=== PATIENT | female | born 1995 | race African-American/Black ===

== ENCOUNTER 2017-07-17 17:59 | Emergency (ER) | payer MEDICAID ==
--- NOTE | 2017-07-17 18:05 | EDPHY ---
H & P Stated Complaint: cut to Rt index finger from shelf on Friday @ work HPI/ROS: HPI CHIEF COMPLAINT: Right index finger abrasion HISTORY OF PRESENT ILLNESS: Patient otherwise healthy 22-year-old female no significant medical history she presents emergency room abrasion to the index finger dorsal aspect. Very small. Half a cm. She sustained this on Friday. She woke up this morning thought there is some yellow crust to it. No fever. No redness no drainage no swelling. No significant pain. Past Medical History: No medical history Past Surgical History: No surgical history Social History: Denies daily use drugs alcohol tobacco products Family History: Noncontributory ROS REVIEW OF SYSTEMS: A comprehensive 10 point review of systems is otherwise negative aside from elements mentioned in the history of present illness. Exam Constitutional appears well nontoxic triage nursing summary reviewed, vital signs reviewed, awake/alert. Eyes normal conjunctivae and sclera, EOMI, PERRLA. HENT normal inspection, atraumatic, moist mucus membranes, no epistaxis, neck supple/ no meningismus, no raccoon eyes. Respiratory clear to auscultation bilaterally, normal breath sounds, no respiratory distress, no wheezing. Cardiovascular rate normal, regular rhythm, no murmur, no edema, distal pulses normal. Gastrointestinal soft, non-tender, no rebound, no guarding, normal bowel sounds, no distension, no pulsatile mass. Genitourinary no CVA tenderness. Musculoskeletal no midline vertebral tenderness, full range of motion, no calf swelling, no tenderness of extremities, no meningismus, good pulses, neurovascularly intact. Skin right hand: Index finger dorsal side at the proximal base of the right index finger there is a very half a cm abrasion present. There is no signs of erythema or drainage or discharge or pus or crusting. Unremarkable small abrasion. Neurologic awake, alert and oriented x 3, AAOx3, moves all 4 extremities equally, motor intact, sensory intact, CN II-XII intact, normal cerebellar, normal vision, normal speech. Psychiatric normal mood/affect. Heme/Lymph/Immune no lymphadenopathy. Differential Diagnosis: Abrasion to right index finger, cellulitis Medical Decision Making: Recommend close observation of this area to watch for infection. Antibiotic ointment Neosporin or bacitracin is fine. Return emergency room if there is worsening swelling pain redness drainage or pus. Source: Patient - Personal History LMP (Females 10-55): Now Current Tetanus Diphtheria and Acellular Pertussis (TDAP): Yes - Medical/Surgical History Other PMH: denies - Social History Smoking Status: Never smoked Constitutional: Initial Vital Signs Temperature (C) 36.6 C 07/17/17 18:02 Heart Rate 86 07/17/17 18:02 Respiratory Rate 18 07/17/17 18:02 Blood Pressure 105/63 07/17/17 18:02 O2 Sat (%) 97 07/17/17 18:02 O2 Delivery Mode Room Air Allergies/Adverse Reactions: No Known Allergies Allergy (Unverified 07/17/17 18:02) Home Medications: Medication Instructions Recorded NK [No Known Home Meds] 07/17/17 Departure - Departure Disposition: Home, Routine, Self-Care Clinical Impression: Abrasion Condition: Good Instructions: Abrasion (ED) Additional Instructions: 1. Return to the emergency room if you have worsening symptoms questions or concerns. Referrals: Carole Quintana MD [Primary Care Provider] - As per Instructions
[2017-07-17 18:10] VITALS: BP 105/63; PULSE 86; RESP 18; TEMP 98; O2SAT 97
== END 2017-07-17 18:16 | disposition home or self-care (01) ==
LOC: CED 17:59
DX: S60.410A Abrasion of right index finger, initial encounter (principal); W45.8XXA Other foreign body or object entering through skin, initial encounter; Y92.69 Other specified industrial and construction area as the place of occurrence of the external cause; Y99.0 Civilian activity done for income or pay; Y93.89 Activity, other specified